=== PATIENT | male | born 1955 | race Caucasian/White ===

== ENCOUNTER 2024-08-26 07:33 | Emergency (ER) | payer SELFPAY ==
[2024-08-26] VITALS (14 sets, daily range): BP systolic 86–130; BP diastolic 49–73; BMI 24.2
--- NOTE | 2024-08-26 08:29 | ED.GENMED ---
History of Present Illness
General
Chief Complaint: Abdominal Pain
Source: patient, records and family
Exam Limitations: none
Time Seen by Provider: 08/26/24 08:14
Nursing documentation reviewed up to this point in time: agreed with
History of Present Illness
History of Present Illness:
69-year-old male with a past medical history of CHF on milrinone pump, hypertension, CAD, atrial fibrillation, hyperlipidemia, diverticulitis status post partial colectomy who presents to the emergency department for evaluation of abdominal pain.
Patient reports that he initially had an episode of intense abdominal pain at the end of e was seen by his primary doctor at that time and with severe pain was recommended to go to the emergency room�I reviewed the note from his doctor's
office and they were concerned potentially for mesenteric ischemia. It sounds like he went home and his symptoms resolved after a few hours and he decided not to go to the emergency room at that time. About 3 to 4 days ago his pain returned�he
reports an intense pain that starts in the right mid to lower abdomen radiates diffusely. No clear triggering or relieving factors noted. He has had associated nausea and 2 or 3 episodes of vomiting over the past few days. Today started with
fever associated with the pain which prompted him to finally come to the emergency room. He has not had any dysuria, hematuria, change in urinary frequency. No change in his bowel movements. No chest pain or shortness of breath or any other
complaints. Prior surgical history includes appendectomy and partial colectomy secondary to diverticulitis; he also had subsequent abdominal wall hernia repair.
Review of Systems
Review of Systems
All Other Systems: ROS reviewed and negative except as documented in HPI and ROS
Constitutional: Reports fever and chills
Respiratory: Denies cough or trouble breathing
Cardiac: Denies chest pain
ABD/GI: Reports abdominal pain, nausea and vomiting; Denies diarrhea or constipated
: Denies dysuria, frequency or flank pain
Musculoskeletal: Denies neck pain or back pain
Neurological: Denies headache
Phy Exam
Physical Exam
Physical Exam:
General: Awake, alert; no acute distress; milrinone pump in place
Head: Normocephalic, atraumatic
Eyes: Conjunctiva normal
Throat: Airway intact, handling secretions
Neck: Trachea midline, no JVD
Lungs: Clear to auscultation bilaterally, no wheezing, rales, rhonchi
Heart: Regular rate and rhythm, systolic murmur
Abd: Soft, slightly distended but nontympanic; diffusely and exquisitely tender to the touch with guarding; abdominal wall scarring from prior surgeries
Neuro: No gross deficits
Extremities: Warm and well-perfused
Scores
Heart Failure Risk
Heart Failure Risk Score: Not Applicable
Heart Score for Chest Pain Patients
STEMI patient?: Not applicable
Withdrawal Assessment of Alcohol
Withdrawal Assessment Completed?: Not applicable
Sepsis
Sepsis Screening
Sepsis Assessment: Sepsis
Sepsis Screen
Sepsis Screen: Sepsis
Date: 08/26/24
Time: 13:59
Course
Orders/Labs/Results
Orders:
Orders
08/26/24 08:15
Urinalysis Reflex To Culture Urgent
08/26/24 08:16
Acetaminophen [Tylenol] 1,000 mg PO NOW STA
08/26/24 08:27
CT Angio Abd/Pelvis w/wo IV [CT Abd/pelvis Angio W/wo Iv] Urgent
Comment: h/o appendectomy, partial colon resection
Reason For Exam: severe abd pain and tenderness
08/26/24 08:29
Morphine Sulfate 4 mg IV NOW STA
08/26/24 08:34
COVID-19 Antigen Urgent
Source: Nasal Swab
Complete Blood Count/With Diff Urgent
Comprehensive Metabolic Panel Urgent
Lactate Level [Lactic Acid] Urgent
Lipase Urgent
Manual Differential Urgent
Blood Culture Q30M
LIANET Source: Blood/Venous
Specimen Description:
Influenza A+B Rapid Molecular Urgent
LIANET Source: Nasal Swab
Specimen Description:
08/26/24 08:44
CR Chest Portable - 1 View Urgent
Comment:
Reason For Exam: abd pain, r/o free air
Reason Study Needs to be Portable: Unable to Transport
08/26/24 09:19
Blood Culture Q30M
LIANET Source: Blood/Venous
Specimen Description:
08/26/24 09:44
Piperacillin/Tazo 3.375 Gram [Zosyn] 3.375 gram in 50 ml IV NOW
08/26/24 10:35
0.9% Sodium Chloride 250 ml [Nss] 250 ml IV BOLUS
08/26/24 11:12
Electrocardiogram (*1) Urgent
Reason for Study: Chest Pain
EKG- Treatment ONCE
08/26/24 11:39
ColoRectal Surgery Consult Urgent
Consulting Provider: Herb Ramirez
Was physician already notified: Yes
Vascular Surgery Consult Urgent
Consulting Provider: Jerome Peralta
Was physician already notified: Yes
08/26/24 11:57
HYDROmorphone [Dilaudid] 0.5 mg IV NOW STA
Abnormal Lab Results
08/26/24
08:34
WBC 12.4 H 10^3/uL
(4.8-10.8)
RDW 15.3 H %
(11.5-14.5)
Abs Neuts (Manual) 10.6 H 10^3/uL
(1.4-6.5)
Band Neutrophils 17 H %
(0-3)
Lymphocytes (Manual) 6 L %
(20-51)
BUN 21 H mg/dl
(9-20)
Creatinine 2.0 H mg/dL
(0.7-1.3)
Glucose 124 H mg/dl
(70-99)
08/26/24 08:34
08/26/24 08:34
Vital Signs
Initial and Last Documented VS:
Initial Vital Signs
Temp Pulse Resp BP Pulse Ox
38.3 C H 86 16 129/56 93
08/26/24 07:38 08/26/24 07:38 08/26/24 07:38 08/26/24 07:38 08/26/24 07:38
Last Documented Vital Signs
Temp Pulse Resp BP Pulse Ox
38.3 C H 70 26 110/54 94
08/26/24 07:38 08/26/24 13:00 08/26/24 13:00 08/26/24 13:00 08/26/24 13:00
MDM/Problems Addressed
Differential Diagnosis Includes:
Perforated viscus, diverticulitis, colitis including ischemic colitis or mesenteric ischemia, cholelithiasis/cholecystitis, pancreatitis
MDM/Problems Addressed:
69-year-old male presents for evaluation of extreme abdominal pain associated with fever; had an episode about a month ago was recommended to go to the ER but after symptoms improved he did not present. Returns today with worsening pains and fever
for the past few days. Vitals as above�notable for fever but normotensive with acceptable pulse rate. Physical exam as above�notably he has exquisite diffuse tenderness to palpation. Plan to place an IV check labs including a CBC and a CMP,
lactate and blood cultures. Check lipase. Swab for COVID and flu. Chest x-ray to rule out free air. Will send for a CT angio of the abdomen pelvis. Treat pain. Hold on fluids with severe heart failure history and patient appearing euvolemic on
exam. Tylenol for antipyretic. Reassess after the above.
Initial labs reviewed: CBC shows leukocytosis to 12.4. CMP shows creatinine 2.0 unclear baseline. Lactate less than 2. COVID and flu negative. Chest x-ray no free air, atelectasis versus pneumonia lung bases. With no cough or shortness of
breath somewhat lower suspicion for pneumonia�cover with Zosyn empirically will cover pneumonia as well as intra-abdominal pathology.
Blood pressure slightly soft given significant cardiac history will provide some gentle fluids but hold on vigorous fluid resuscitation.
Blood pressure improving with gentle fluids.
CT called back by radiology: Patient does have what appears to be infrarenal aortic occlusion. He also shows some signs of colonic ischemia on CT. Case discussed with vascular surgery who reviewed scan�SMA's appear patent, suspect that infrarenal
aortic occlusion is chronic and he does have good collateral flow. Unlikely that this accounts for his acute colonic issue�may have thrown small clot but no large clot in the SMA that would be retrievable by vascular. They will come to the bedside
to see. Hold on heparin for the time being pending colorectal evaluation for possible OR. I discussed the case with colorectal surgery who will come to bedside to evaluate the patient. I discussed the case with the hospitalist to facilitate
admission pending consultation.
I had a long discussion with the patient, hospitalist team at bedside. Patient says that if he is going to need surgery he does not want to be treated here. I explained the urgency of the situation but he refuses to have surgery here. He says
state he is well-known to [facility] and wishes to be transferred there for treatment and surgery. I did speak to his primary merry go round attendant (Dr. Ralph Balderas) to obtain background history�it sounds like he had known history of infrarenal aortic
occlusion. Previously had been on Xarelto but this was discontinued due to fall/syncope. Known history of severe CHF with EF of 20%, on chronic milrinone drip. Will place a call to [facility] transfer center to facilitate emergent transfer request
with this very sick patient with ischemic bowel.
Surgeon at [facility] currently in the operating room so there has been a delay in hearing back from them to discuss transfer. I had a long discussion with the patient again I explained that transfer is delaying his care for this critical diagnosis.
I explained to him that delaying care and delaying time to the operating room for transfer could result in worsening condition, bowel and . He says that he understands but he wants to go to [facility] does not wish to be treated
here. Will continue efforts to transfer.
Spoke with colorectal surgery as well as the emergency room physician at [place] and patient was accepted for transfer. Will fly patient given acuity of illness--sepsis with concern for ischemic bowel.
Chronic conditions affecting care:
CHF
*Radiology
Radiology exam reviewed: radiology read reviewed
*Pulse Oximetry
Patient hypoxic: no
*Critical Care Note
Total Time (30-74mins, 75-104mins- exclusive of procedures): Not Applicable
Data Reviewed
Review of Other/Old Records Reveals: Records (Reviewed external records from outpatient office visit)
Source: patient and family
Prescriptions/Medications Considered But Not Given:
Considered IV fluids
Patient Management
Discussion with other providers: Hospitalist (Discussed with hospitalist) and Airplane Electrician (Discussed with colorectal surgery, discussed with vascular surgery)
Escalation/DeEscalation of care consider admission/obs:
Admission indicated
ED Attending Note
-
Portions of this chart may have been created with voice recognition software.� Occasional wrong word or��sound alike� substitutions may have occurred due to the inherent limitations of voice recognition software.
Discharge Plan
Departure
Patient Disposition: Acute Care Hospital
Date of Disposition: 08/26/24
Time of Disposition: 11:55
Admit to doctor: Chip
Discharge Problem:
Intestinal ischemia, Aortic occlusion, Sepsis
Prescriptions:
No Action
bumetanide [Bumex] 2 mg Tablet
2 mg PO DAILY
bumetanide [Bumex] 2 mg Tablet
2 mg PO DAILYPRN PRN (Reason: WEIGHT GAIN)
amiodarone 200 mg tablet
100 mg PO DAILY
bismuth subsalicylate [Pepto-Bismol] 262 mg/15 mL Suspension
524 mg PO QIDPRN PRN (Reason: INDIGESTION)
aspirin 81 mg Tablet,Chewable
81 mg PO DAILY
vitamin B complex Tablet
1 tab PO DAILY
digoxin 125 mcg (0.125 mg) tablet
125 mcg PO DAILY@1200
valsartan 40 mg Tablet
40 mg PO DAILYPRN PRN (Reason: SBP>150)
potassium chloride 20 mEq tablet extended release
20 meq PO BID
Milrinone 52 Mg/ 65 Ml
0.25 mcg IV .CONTINUOUS
Rx Instructions:
milrinone 52 mg/65 ml D5W - 0.25 mcg/kg/min (wt 60.8 kg)
1.1 ml/hr = 0.88 mg/hr
Presc Dr Ralph Balderas; [facility]
Referrals:
Bety Lebron PA-C [Family Provider] -
Hospital Transfer
Other hospital: [facility]
I certify that the patient requires transfer: Yes
Discussed case with accepting physician: Dr. Eliza Weems
Reason for transfer: continuity of care PCP
Interventions
Interventions:
*Risk Screen - Suicide Last Done: 08/26/24 07:38
*General Assessment Last Done: 08/26/24 09:23
*Neglect/Abuse Screening Last Done: 08/26/24 07:38
*ED- Fall Risk Assessment Last Done: 08/26/24 09:23
*ED COVID-19 Vaccine History Last Done: 08/26/24 09:22
FM-Mcfbkn-[id number] Assessment Last Done: 08/26/24 09:23
Discharge Date and Time
Print Language: PORTUGUESE
[2024-08-26] MEDS: TYLENOL 1000 MG PO (08:43)
[2024-08-26] MEDS: MORPHINE SULFATE 4 MG IV (08:44)
[2024-08-26 09:01] LABS: Hematocrit 40.4 % (39.0-52.0); Hemoglobin 13.4 g/dL (13.0-18.0); Mean Corp Hgb Conc. 33.2 g/dL (33.0-37.0); Mean Corpuscular Hgb 28.2 pg (27.0-31.0); Mean Corpuscular Volume 84.9 fL (80.0-94.0); Mean Platelet Volume 9.2 fL (7.4-10.4); Platelet Count 265 10^3/uL (130-400); Red Blood Cell Count 4.76 10^6/uL (4.70-6.10); Red Cell Dist. Width 15.3 % (11.5-14.5); White Blood Cell Count 12.4 10^3/uL (4.8-10.8)
[2024-08-26 09:26] LABS: Lactic Acid 1.2 mmol/L (0.7-2.0)
[2024-08-26 09:27] LABS: ALT (SGPT) 14 U/L (0-50); AST (SGOT) 19 U/L (17-59); Albumin 3.8 g/dl (3.5-5.0); Alkaline Phosphatase 106 U/L (38-126); Blood Urea Nitrogen 21 mg/dl (9-20); COVID-19 Antigen Negative (Negative); Calcium 9.1 mg/dl (8.4-10.2); Carbon Dioxide 24 mmol/L (22-30); Chloride 105 mmol/L (98-107); Estimated Creatinine Clearance 33 ml/min; Glucose 124 mg/dl (70-99); Lipase 27 U/L (23-300); Potassium 3.7 mmol/L (3.5-5.1); Sodium 139 mmol/L (135-145); Total Protein 6.8 g/dl (6.3-8.2); eGFR 35.68
[2024-08-26 09:43] LABS: Absolute Neutrophils -Man Diff 10.6 10^3/uL (1.4-6.5); Atypical Lymphocytes 1 %; Band Neutrophils 17 % (0-3); Lymphocytes 6 % (20-51); Metamyelocytes 1 % (-); Monocytes 5 % (2-9); Myelocytes 1 % (-); Segmented Neutrophils 69 % (42-75)
[2024-08-26 09:44] LABS: Anisocytosis 1+; Hypochromasia 1+; Normal RBC Morphology No; Platelets Checked Yes; Polychromasia 1+
[2024-08-26 09:45] LABS: Ovalocytes 1+; Total Cells Counted 100
[2024-08-26] MEDS: ZOSYN 50 IV (10:01)
[2024-08-26] MEDS: NSS 250 IV (10:55)
--- NOTE | 2024-08-26 12:33 | W.PN.UPDATE ---
Update Note
Progress Note Update
Seen and examined in the emergency room with CHIDI Carter. Full consultation to follow. Seen and history obtained via [employer] [employer] k[employer]wh[employer]aere #[id number]. I also spoke to patient's primary care (patient had to me the phone with the primary
care on the line). Patient is a 69-year-old male with significant cardiac history (history of A-fib, history of coronary artery disease and stents) who has had abdominal pain for 3 weeks. He notes that about 4 weeks ago he started having right leg
pain. It was quite intense at first but then subsided. Now he has been having pain with walking short distances in the right leg. No pain in the left leg. However about 3 weeks ago he developed abdominal pain relatively acutely from what it
sounds. Had pain on and off. He describes as more postprandial. However last night had severe abdominal pain that was unremitting and continues to have that. Worse in the right lower quadrant. He does have a history of atrial fibrillation. Not
currently on anticoagulation. He does have a continuous milrinone infusion.
Cardiovascular risk factors include significant tobacco use 50-year history quit relatively recently.
On exam/he is awake and alert. No acute distress when I am not examining him, though he does appear mildly dyspneic. Abdomen is soft and diffusely tender. Positive peritoneal signs. Lower extremity with nonpalpable pulses throughout bilaterally.
His feet however are warm and pink. There is no rubor, no ulcerations. And I am able to Doppler bilateral PT signals. Capillary refill is reasonable.
CTA abdomen pelvis reviewed. He has infrarenal aortic occlusion. 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 His celiac artery appears generally patent with may be
mild stenosis near the origin. No evidence of thrombotic or embolic occlusion. His SMA appears diffusely patent. There may be about a 50% stenosis or less at the origin. There is no evidence of acute thrombotic or embolic occlusion. He has a
very large collateralized ADAMARIS/marginal artery. He has reconstitution of left external iliac artery and right common femoral artery.
Plan/ Likely subacute or chronic infrarenal aortic occlusion. Based on the fact that the left kidney is atretic this suggest the chronicity here of the occlusion. In addition his legs are not ischemic at all. He does have chronic claudication in
his right leg. But no appearance of acute limb ischemia. No symptoms of chronic limb threatening ischemia (no ischemic rest pain, no tissue loss). As far as his mesenteric arteries while he does have some disease near the origins including plaque
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 In addition there is no evidence of thrombotic or embolic occlusion of the SMA or celiac artery which would support
a diagnosis of acute mesenteric ischemia. Therefore there is no acute mesenteric ischemia here. However, he does have more of an acute abdomen exam, and CT scan findings suggestive of colonic ischemia or other. Therefore would defer to general
surgery/colorectal surgery for likely more definitive management. Note I did spend the time to explain this all to the patient via the kaiwhak[employer]aere. I did draw diagrams for the patient to understand. After our discussion, the patient indicated to
me that he was aware of this aortic disease or occlusion based on his mis manager workup. Dr. Torres in the ER also reported to me after had seen the patient that he was able to speak to the mis manager who did note what sounds like a chronic
aortic occlusion. Therefore again I am available for any revascularization needs, but no clear indication for any acute revascularization at this time.
[2024-08-26] MEDS: DILAUDID 0.5 MG IV ×2 (12:35→14:29)
== END 2024-08-26 14:49 | disposition short-term general hospital (02) ==
LOC: EMR 07:33
PROVIDERS: CONSULT PHYSICIAN Surgery; CONSULT PHYSICIAN Surgery Vascular Surgery; EMERGENCY PHYSICIAN Emergency Medicine; FAMILY PHYSICIAN Physician Assistant Medical
DX: K55.9 Vascular disorder of intestine, unspecified (principal); A41.9 Sepsis, unspecified organism; R10.9 Unspecified abdominal pain; I11.0 Hypertensive heart disease with heart failure; I50.9 Heart failure, unspecified; I25.10 Atherosclerotic heart disease of native coronary artery without angina pectoris; E78.00 Pure hypercholesterolemia, unspecified; I48.91 Unspecified atrial fibrillation; Z79.01 Long term (current) use of anticoagulants; Z90.49 Acquired absence of other specified parts of digestive tract
CPT/HCPCS: 99285; 96374; 96375; 96376; 96361; 71045; 74174; 80053; 83605; 83690; 85025; 87040; 87502; 87811; 93005; Q9967

== ENCOUNTER → 2024-11-30 10:08 | Outpatient (REF) | payer OTHER, SELFPAY | LOC: CLINIC 10:08 | PROVIDERS: ATTENDING PHYSICIAN Internal Medicine | DX: M70.61 Trochanteric bursitis, right hip (principal) | CPT/HCPCS: 72110 ==